=== PATIENT | male | born 1975 ===

== ENCOUNTER 2020-05-09 06:09 | Observation (INO) ==
[2020-05-09] MEDS ORDERED: Buffered Lidocaine 1% SYRIN 1 ml INTRADERM ONE ×2 (06:30→06:36)
[2020-05-09] MEDS ORDERED: ceFAZolin 2 GM PREMIX 2 GM/50 ML BAG ONE (06:30)
[2020-05-09] MEDS ORDERED: Famotidine IV 10 MG/ML 2 ml VIAL (20 mg) IV ONE (06:36)
[2020-05-09] MEDS ORDERED: Acetaminophen IV 1 GM/100ML 1,000 MG/100 ML VIAL IVPB ONE (06:36)
[2020-05-09] MEDS ORDERED: fentaNYL 250 mcg/5 ml 50 MCG/ML 5 ml VIAL (250 MCG) ONE (06:56)
[2020-05-09] MEDS ORDERED: Midazolam 2 mg/2 ml VIAL 1 mg/ml 2 ml VIAL (2 mg) ONE (06:57)
[2020-05-09] MEDS ORDERED: Acetaminophen IV 1 GM/100ML 100 ML ONE (07:00)
[2020-05-09] MEDS ORDERED: Succinylcholine 200 mg VIAL 20 mg/ml 10 ml VIAL (200 mg) ONE (07:00)
[2020-05-09] MEDS ORDERED: Lactated Ringers 1000 ml BAG 1,000 ML IV SCH (07:00)
[2020-05-09] MEDS ORDERED: Propofol 10 MG/ML 20 ML BTL ONE (07:00)
[2020-05-09] MEDS ORDERED: Ondansetron 4 mg VIAL 2 MG/ML 2 ml VIAL ONE (07:00)
[2020-05-09] MEDS ORDERED: Famotidine IV 10 MG/ML 2 ml VIAL (20 mg) ONE (07:00)
[2020-05-09] MEDS ORDERED: Dexamethasone IV 4 MG/ML VIAL 1 ml VIAL ONE (07:00)
[2020-05-09] MEDS ORDERED: Lidocaine 2% PF 5 ML VIAL ONE (07:02)
[2020-05-09] MEDS ORDERED: Rocuronium 50 mg VIAL 10 mg/ml 5 ml VIAL (50 mg) ONE (07:02)
[2020-05-09] MEDS ORDERED: Phenylephrine IV 10 MG/ML 1 ml VIAL ONE (07:02)
[2020-05-09] MEDS ORDERED: Bacitracin INJECTION 50,000 UNITS ONE (07:08)
[2020-05-09] MEDS ORDERED: Glycopyrrolate IV 0.2 MG/ML 1 ML VIAL ONE (07:35)
[2020-05-09] MEDS ORDERED: Naloxone 0.4 mg VIAL 0.4 mg/ml 1 ml VIAL IV PRN (08:02)
[2020-05-09] MEDS ORDERED: HYDROmorphone 1 MG/1 ML SYRINGE IV PRN (08:02)
[2020-05-09] MEDS ORDERED: HYDROcodone/ACETAMIN 5/325 mg TAB PO PRN (10:13)
[2020-05-09] MEDS ORDERED: Magnesium Hydroxide LIQ 30 ML UDC PO PRN (10:13)
[2020-05-09] MEDS ORDERED: Ondansetron 4 mg VIAL 2 MG/ML 2 ml VIAL IV PRN (10:13)
[2020-05-09] MEDS ORDERED: Dextrose 50% Syringe 50 ml 25 GM/50 ML SYRINGE IV PUSH PRN (11:17)
[2020-05-09] MEDS: HYDROcodone/ACETAMIN 5/325 mg TAB PO PRN ×2 (15:46→20:05)
[2020-05-10] MEDS: HYDROcodone/ACETAMIN 5/325 mg TAB PO PRN ×3 (00:31→11:15)
[2020-05-10 11:18] VITALS: BP 116/75
[2020-05-12] MEDS ORDERED: Scopolamine PATCH Remove NOTE PATCH OFF ONE (06:37)
== END 2020-05-10 11:27 | disposition home or self-care (01) ==
LOC: SSU 06:09 → OR 06:09
PROVIDERS: ADMIT Neurological Surgery; ATTEND Internal Medicine